=== PATIENT | female | born 1995 | race Caucasian/White ===

== ENCOUNTER 2020-01-07 13:57 | Emergency (ER) | payer OTHER ==
[~2020-01-07] VITALS: Ht 167.6 cm; Wt 102.1 kg
[2020-01-07 14:16] VITALS: Ht 167.6 cm; Wt 102.1 kg
[2020-01-07 16:07] VITALS: BP 118/84
== END 2020-01-07 16:07 | disposition home or self-care (01) ==
LOC: ED 13:57
DX: M54.5 Low back pain (principal)
CPT/HCPCS: J1885